=== PATIENT | male | born 1960 | race Caucasian/White ===

== ENCOUNTER → 2017-09-11 11:55 | Outpatient (CLI) | payer OTHER, SELFPAY ==
[2017-09-11 13:03] LABS: Prothrombin Time (Protime)PT. 13.1 SECONDS (11.7-14.9)
[2017-09-11 13:23] LABS: Creatinine, Serum 0.87 mg/dL (0.70-1.30); EST Glomerular Filtration Rate 96 mL/min (>60); Est Glom Filt Rate - Afr Amer 116 mL/min (>60)
== END ==
PROVIDERS: Family Provider Family Medicine; PCP Family Medicine; Visit Provider Nurse Practitioner Acute Care
DX: M16.11 Unilateral primary osteoarthritis, right hip (principal)
CPT/HCPCS: 36415; 82565; 85610

== ENCOUNTER → 2017-09-18 09:57 | Outpatient (CLI) | payer OTHER, SELFPAY ==
--- NOTE | 2017-09-18 10:06 | MRI_ITS ---
STUDY: MRI RIGHT HIP arthrogram. REASON FOR EXAM: Male, 57 years old. Right hip/groin pain since one year. Painful to walk. TECHNIQUE: Standardized fat and water weighted pulse sequences were obtained in all 3 orthogonal planes. Post arthrogram. COMPARISON: None. FINDINGS: There is mild/moderate articular narrowing of the hip joint, with about 50% loss of the hyaline cartilage. There is subchondral significant cortical cyst formation of the weight bearing articular surface of the acetabulum demonstrated with associated stress marrow edema laterally. There is labral degeneration and with associated cartilage damage. There is inferior small osteoarthritic spurring of the femoral head. Normal femoral neck and intratrochanteric region. There is no demonstrated fracture. There is joint effusion. Normal gluteus minimus, medius and iliopsoas tendons and distal insertions. There is no trochanteric, iliopsoas or iliopectineal bursitis. Normal superior and inferior pubic rami. Normal origin of the hamstring tendons. Unremarkable visualized soft tissue structures of the pelvis. MRI/Lower Ext/Jt Only/W Contrast IMPRESSION: Degenerative right hip osteoarthritis is demonstrated with significant subchondral cystic formation and acetabular labral degeneration. Radiographic correlation is advised. Electronically Signed: Syd Dillon MD at 10:23 EDT Tel , Service support ,
--- NOTE | 2017-09-18 10:34 | RAD_ITS ---
REASON FOR EXAM: Male, 57 years old. Right hip pain. FLUOROSCOPY TIME (if supplied): (41 seconds) TECHNIQUE: Written witnessed informed consent was obtained after explaining the procedure, risks, benefits and alternatives to the patient by Dr. Araujo including verbal consent of the patient and answering all the patient's questions regarding the procedure. The patient was in the supine position and an ice pack was placed on the thigh approximately 15 minutes before the procedure. The overlying skin then was prepped and draped in the usual sterile fashion. Following local anesthetic application and under direct radiographic guidance, a 22-gauge spinal needle was placed into the left hip joint. Approximately 5 cc of Isovue 300 was injected. No liquid was aspirated. As requested by surgeon, 7 cc intra-articular lidocaine was injected without immediate complication. Although patient originally stated he had no right hip pain today, he stated that he had relief with intra-articular lidocaine injection during procedure. Subsequently, dilute gadolinium solution was then injected intra-articularly as provided by the pharmacy without immediate complication. COMPARISON: None available. Findings: Images confirm intra-articular injection of iodine contrast without obvious labral tear identified. RAD/Arthrogram Hip w/ MRI IMPRESSION: Left hip intra-articular injection of lidocaine and then intra-articular dilute gadolinium for MRI as described. The patient tolerated the procedure well and stated he experienced pain relief with intra-articular lidocaine as described then was transferred to MRI suite for further imaging. Clinical correlation recommended. Electronically Signed: Nahum Araujo, at 14:46 EDT Tel , Service support ,
== END ==
PROVIDERS: Family Provider Family Medicine; PCP Family Medicine; Visit Provider Orthopaedic Surgery
DX: M16.11 Unilateral primary osteoarthritis, right hip (principal)
CPT/HCPCS: 27093; 73722; 77002; A9577; Q9967

== ENCOUNTER 2020-09-04 16:34 | Outpatient (RCR) | payer OTHER, SELFPAY ==
[2016-10-03 16:12] VITALS: BMI 25.7
[2020-09-04] MEDS: COVID-19 VACC, MRNA(PFIZER)/PF 30 MCG/0.3 ML SYRINGE IM (09:54)
[2020-09-25] MEDS: COVID-19 VACC, MRNA(PFIZER)/PF 30 MCG/0.3 ML SYRINGE IM (09:40)
== END 2020-11-27 23:59 ==
LOC: IMMUN 16:34
PROVIDERS: PCP Family Medicine; Visit Provider Family Medicine
DX: Z23 Encounter for immunization (principal)
CPT/HCPCS: 0001A; 0002A; 91300

== ENCOUNTER 2020-12-04 15:37 | Emergency (ER) | payer OTHER, SELFPAY ==
[2020-12-04 15:38] VITALS: BP 117/86; PULSE 95; RESP 16; TEMP 36.3; O2SAT 97; BMI 25.1
--- NOTE | 2020-12-04 16:22 | EDS_ITS ---
HPI History of Present Illness Chief Complaint: Upper Extremity Injury Narrative Narrative: 60-year-old male presenting with laceration to the right hand fourth digit. This is on the volar aspect. He states he got his hand trapped in the arm of an industrial sewing machine. Bleeding is well controlled. He is right- hand dominant. He states he is up-to-date on his tetanus. Patient denies any other significant medical history. Patient states that the pain is well controlled. Tetanus Immunization: <5 years PFSH PFSH Home Medications cetirizine [Zyrtec] 10 mg PO DAILY 10/03/16 [History Last Taken Unknown] Allergy/AdvReac Type Severity Reaction Status Date / Time Sulfa (Sulfonamide Allergy Other Verified 12/04/20 15:38 Antibiotics) Surgical History History of hip replacement Social History Smoking Status: Former smoker ROS ROS ED Constitutional Constitutional ED: Denies chills, fever(s) or sweats Eyes Eyes: Denies blurry vision or change in vision ENT ENT ED: Denies ear pain, rhinorrhea or sore throat Cardiovascular Cardiovascular: Denies chest pain, palpitations or racing heartbeat Respiratory/Chest Respiratory/Chest: Denies cough, dyspnea or sputum Gastrointestinal Gastrointestinal: Denies abdominal pain, constipation, diarrhea or vomiting Genitourinary Genitourinary ED: Denies dysuria, hematuria or urinary frequency Musculoskeletal Musculoskeletal: Denies arthralgias, myalgias or neck pain Integumentary Reports other Details: Laceration to right hand fourth digit on the volar aspect. ; Denies abscess, Abrasions or rash Neurologic Neurologic: Denies headache(s), paresthesias or weakness Psychiatric Psychiatric: Denies anxiety, depression, suicidal ideation or suicidal thoughts Endocrine Endocrinology: Denies polydipsia or polyuria EXAM Physical Exam Const Vital Signs: 12/04/20 15:38 Temperature 97.3 F L Temperature Source Temporal Pulse Rate 95 Respiratory Rate 16 Blood Pressure 117/86 H Blood Pressure Mean 96 Pulse Ox 97 Oxygen Delivery Method Room Air Positive well nourished General Appearance ED: NAD; Negative for pallor HEENT Reports normocephalic, head/scalp atraumatic and moist mucous membranes normocephalic and atraumatic Eyes PERRL and EOMs intact bilaterally Neck no lymphadenopathy and supple Resp normal respiratory effort Auscultation: Negative for wheezes GI normal to inspection, nondistended, normoactive bowel sounds and non-distended Auscultation: normoactive bowel sounds Palpation: soft Narrative: Deferred Extremity normal to inspection Extremity Narrative: 4 centimeter laceration to right hand fourth digit extending from the distal proximally to midway between his PIP and DIP medially. The edges are very macerated. There is no bone exposure. No obvious tendon injury. Right hand is neurovascular intact brisk cap refill all 5 fingers. General Extremety ED: Yes tenderness Neuro oriented x3 and CN's II-XII intact bilaterally Sensorium / Orientation: alert Motor Exam: strength 5/5 throughout Psych mental status grossly normal Attitude: No agitated Skin no rashes or lesions noted and no wounds General Skin Exam: Negative for jaundice or pallor MDM MDM MDM Narrative Medical decision making narrative: Patient presents with laceration to right hand fourth digit as described in physical exam. The edges are very macerated from the injury. He did receive an x-ray of the right hand which is interpreted by myself as no acute fracture or subluxation. Patient's wound was cleaned with chlorhexidine. The hand was sutured please see procedure note. I did use 3?0 on the finger only because the tissue margins were macerated and I suspect that he lost some of the tissue in between and I needed to pull the margins together. This was somewhat difficult to line up given the tissue loss but I was able to approximate the wound margins. Patient tolerated the procedure well. He is given wound care instructions and return precautions. Otherwise he will follow up with the [facility]. Impression: 1. 4 cm right hand laceration Procedures Lacerations Right Hand 4rth digit: Length: 4 ft Depth: Sub Q Shape: Linear (Macerated skin margins) Prep: Sterile Conditions and Chlorhexadine Laceration repair: Irrigated and Lidocaine (4 cc) Irrigated (ml): 500 Number of Sutures/Ezio: 8 Suture Information: Ethilon (3-0) Discharge Plan Triage Chief Complaint: Upper Extremity Injury ED Provider: Carlton Murphy Dx/Rx/DC Orders Instructions: ED Laceration, Hand: All Closures Prescriptions: No Action cetirizine [Zyrtec] 10 MG capsule 10 mg PO DAILY RF: 0 Primary Care Provider: Graeme Beck Referrals: [facility] [Provider Group] - As soon as possible Graeme Beck MD [Primary Care Provider] - Disposition Disposition: Home, self care Discharge Date/Time: 12/04/20 19:05
--- NOTE | 2020-12-04 16:40 | RAD_ITS ---
STUDY: X-RAY - RIGHT HAND REASON FOR EXAM: Male, 60 years old. hand injury TECHNIQUE: 3 view(s) of the hand. COMPARISON: None. FINDINGS: Small cortical spurs are present on the dorsal surface of the IP joint of the thumb. Mild soft tissue swelling and bandage material noted around the distal phalanx of the fourth digit. A tiny corticated spur is present at the base of the distal phalanx of the second digit. Normal radiocarpal articulation. Normal distal radioulnar joint. Normal visualized carpal bones. Normal carpal articulations Normal carpometacarpal articulation of the thumb. Normal second through fifth carpometacarpal joints. Normal metacarpi. Mild narrowing of the second and third MCP joint spaces. RAD/Hand Min 3 Views IMPRESSION: 1. Degenerative joint disease of the hand, as described above. 2. Mild soft tissue swelling and bandage material noted around the distal phalanx of the fourth digit. Electronically Signed: Boni Fine MD at 17:37 EDT , Service support ,
[2020-12-04] MEDS: Lidocaine 2% (20 ml mdv) 20 ML Vial 30 ML INFILT (17:25)
== END 2020-12-04 19:05 | disposition home or self-care (01) ==
PROVIDERS: Emergency Provider Student in an Organized Health Care Education/Training Program; PCP Family Medicine
DX: S61.214A Laceration without foreign body of right ring finger without damage to nail, initial encounter (principal); X58.XXXA Exposure to other specified factors, initial encounter; Z87.891 Personal history of nicotine dependence
CPT/HCPCS: 12002; 73130; 99283